=== PATIENT | male | born 2000 | race Caucasian/White ===

== ENCOUNTER 2021-03-23 21:46 | Emergency (ER) | payer MEDICAID ==
[~2021-03-23] VITALS: Ht 195.6 cm; Wt 69.0 kg
[2021-03-23] MEDS ORDERED: HYDROCODONE/ACETAMINOPHEN 5/325MG TABLET PO ONE (23:45)
[2021-03-24] MEDS ORDERED: IBUP-2030 MT (03:17)
[2021-03-24 03:22] VITALS: BP 120/72
== END 2021-03-24 03:35 | disposition home or self-care (01) ==
LOC: ER 21:46
DX: S00.83XA Contusion of other part of head, initial encounter (principal); Y04.0XXA Assault by unarmed brawl or fight, initial encounter; Y93.89 Activity, other specified; Y92.89 Other specified places as the place of occurrence of the external cause; Y99.8 Other external cause status
CPT/HCPCS: 70486; 99285